=== PATIENT | male | born 1965 | race Caucasian/White ===

== ENCOUNTER 2017-06-22 15:12 | Emergency (ER) | payer SELFPAY ==
[~2017-06-22] VITALS: Ht 175.3 cm; Wt 72.5 kg
[2017-06-22 15:36] LABS: HEMATOCRIT 43.4 % (38.0-50.0); MCH 33.5 PG (29.0-34.0); MCHC 35.9 G/DL (30.0-36.0); MCV 93.3 FL (86-99); MEAN PLAT.VOLUME 8.7 uM^3 (9.0-12.4); PLATELET COUNT 197 K/uL (156-360); RBC DIS.WIDTH-CV 12.2 % (11.8-14.6); RBC DIS.WIDTH-SD 42.2 % (39-53); RED BLOOD COUNT 4.65 M/uL (4.00-5.50)
[2017-06-22 15:44] LABS: CHLORIDE 103 mEq/L (99-109); POTASSIUM 3.6 mEq/L (3.7-5.4); SODIUM 137 mEq/L (136-147)
[2017-06-22 15:46] LABS: GLUCOSE 136 mg/dL (70-99)
[2017-06-22 15:47] LABS: ANION GAP 10 MEQ/L (2-14)
[2017-06-22 15:48] LABS: TOTAL BILIRUBIN 0.7 mg/dL (0.0-1.0)
[2017-06-22 15:50] LABS: ALKALINE PHOSPHATASE 50 IU/L (3-129)
[2017-06-22 15:51] LABS: UREA NITROGEN (BUN) 14 mg/dL (9-23)
[2017-06-22 15:53] LABS: GFR ESTIMATE (CALCULATED) > 59 mL/min/ (58.99-99999)
[2017-06-22 15:58] LABS: TROP-I INTERPRETATION NEGATIVE; TROPONIN-I < 0.01 ng/mL (0.0-0.30)
[2017-06-22 18:45] VITALS: BP 129/96
== END 2017-06-22 20:01 | disposition home or self-care (01) ==
LOC: EME 15:12
PROVIDERS: Nurse Practitioner Family
DX: R42 Dizziness and giddiness (principal); T68.XXXA Hypothermia, initial encounter; J06.9 Acute upper respiratory infection, unspecified; J32.0 Chronic maxillary sinusitis; F17.200 Nicotine dependence, unspecified, uncomplicated
CPT/HCPCS: 70450; 71010; 80053; 83605; 84484; 85027; 87040; 87502; 87651 90; 99281; 99285; J7030